=== PATIENT | male | born 1940 | race Caucasian/White ===

== ENCOUNTER → 2024-04-29 09:40 | Outpatient (REF) | payer MEDICARE, OTHER, SELFPAY | LOC: HWRAD 09:40 | PROVIDERS: ATTENDING PHYSICIAN Colon & Rectal Surgery; FAMILY PHYSICIAN Internal Medicine | DX: R19.4 Change in bowel habit (principal); K91.89 Other postprocedural complications and disorders of digestive system; R63.4 Abnormal weight loss | CPT/HCPCS: 74261 ==